=== PATIENT | female | born 1990 | race Caucasian/White ===

== ENCOUNTER 2020-11-22 21:07 | Emergency (ER) | payer OTHER ==
[2020-11-22] MEDS ORDERED: LIDOCAINE 1% INJ 10MG/ML (20 ML MDV) SQ ONE (22:05)
--- NOTE | 2020-11-22 22:20 | ED ---
Skin/Abscess/FB HPI - General Chief complaint: Skin/Abscess/Foreign Body Stated complaint: R leg sore Time Seen by Provider: 11/22/20 21:51 Source: patient, RN notes reviewed Mode of arrival: ambulatory Limitations: no limitations - History of Present Illness Initial comments: Patient is a 30-year-old female presenting to the emergency department from [facility] for an abscess on her right lower leg. She is at [facility] for opiate abuse. She checked in on Thursday. On Thursday she noticed some increased pain in her right lower leg, she used to inject this area. On Thursday, 2 days ago, she was started on Bactrim. Over the last 48 hours she's noticed increase in pain, swelling and the redness is spreading a little bit as well. No fevers, no nausea or vomiting. Patient was sent in for further evaluation. She states there was a small opening there today and there has been some mild drainage. She has no further complaints, she denies being . Her vitals are stable upon arrival. - Related Data Previous Rx's Medication Instructions Recorded Cephalexin [Keflex] 500 mg PO Q6HR 10 Days #40 cap 11/22/20 Allergies Allergy/AdvReac Type Severity Reaction Status Date / Time amoxicillin Allergy Anaphylaxis Verified 11/22/20 21:48 Penicillins Allergy Anaphylaxis Verified 11/22/20 21:48 Review of Systems ROS Statement: Those systems with pertinent positive or pertinent negative responses have been documented in the HPI. ROS Other: All systems not noted in ROS Statement are negative. Past Medical History Past Medical History: No Reported History Past Surgical History: No Surgical Hx Reported Smoking Status: Current some day smoker Past Alcohol Use History: Occasional Past Drug Use History: Heroin, Methamphetamine General Exam - General Exam Comments Initial Comments: GENERAL: Patient is well-developed and well-nourished. Patient is nontoxic and in no acute distress. HEAD: Atraumatic, normocephalic. EYES: Pupils equal round and reactive to light, extraocular movements intact, sclera anicteric, conjunctiva are normal. Eyelids were unremarkable. ENT: Moist mucous membranes. NECK: Normal range of motion, supple without lymphadenopathy or JVD. LUNGS: Unlabored respirations. Breath sounds clear to auscultation bilaterally and equal. No wheezes rales or rhonchi. HEART: Regular rate and rhythm without murmurs, rubs or gallops. MUSCULOSKELETAL: Normal extremities with adequate strength and normal range of motion, no pitting or edema. No clubbing or cyanosis. NEUROLOGICAL: Patient is alert and oriented x 3. SKIN: Warm, Dry, normal turgor. Patient has a small 1 cm abscess on the right lower leg, anterior bean area. There is some surrounding erythema. Mild pain with palpation. 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: Identity, Site, Procedure, Consent Site: right lower leg Site Marked: Yes Site Verified With Patient/Guardian: Yes Final Confirmation: Procedure, Site, Laterality, Confirmed w/Provider - Incision & Drainage Consent Obtained: verbal consent, written consent Indication: Abscess Site: lower extremity (Right lower leg) Size (cm): 1 Anesthetic Used: lidocaine 1% Amount (mLs): 2 I&D Cleaning Method: Alcohol Wipe Scalpel Used: #11 I&D Drainage Obtained: Pus, Blood Culture Obtained?: No Patient Tolerated Procedure: well Medical Decision Making - Medical Decision Making Patient is a 30-year-old female here with a 1 cm abscess to the right lower leg. She has history of IV drug abuse, currently at [facility]. She started on Bactrim 2 days ago. Her vitals are stable. Patient did consent to an I&D, perform this with small to moderate amount of purulent drainage. I'll. Patient will be started on Keflex in addition to the Bactrim. I recommended continuing with warm compresses. She is agreeable to this and she is stable for discharge back to [facility]. Return parameters were discussed with her and she verbalized understanding. Case discussed with Dr. Alvarez. Disposition Clinical Impression: Abscess of right lower leg Disposition: HOME SELF-CARE Condition: Stable Instructions (If sedation given, give patient instructions): Abscess Incision and Drainage (ED) Additional Instructions: Please return to the Emergency Department if symptoms worsen or any other concerns. Continue on Bactrim, add and Keflex as discussed. Warm compresses to the area, daily dressing changes. Prescriptions: Cephalexin [Keflex] 500 mg PO Q6HR 10 Days #40 cap Is patient prescribed a controlled substance at d/c from ED?: No Referrals: None,Stated [Primary Care Provider] - 1-2 days Time of Disposition: 22:43
[2020-11-22 23:27] VITALS: BP 124/84; PULSE 82; RESP 20; TEMP 98.2
== END 2020-11-22 23:27 | disposition home or self-care (01) ==
LOC: EC 21:07
DX: L02.415 Cutaneous abscess of right lower limb (principal); F17.200 Nicotine dependence, unspecified, uncomplicated; Z88.0 Allergy status to penicillin
CPT/HCPCS: 10060; 99283; J2001